=== PATIENT | female | born 1965 | race African-American/Black ===

== ENCOUNTER 2016-09-07 01:02 | Emergency (ER) | payer OTHER, MEDICAID ==
[~2016-09-07] VITALS: Ht 177.8 cm; Wt 117.9 kg
[~2016-09-07 01:02] MED LIST: ACETAMINOPHEN-1 EAC1 ORAL; ALBUTEROL SULF8.5 GM INH; BACTRIM DS TAB1 EAC1 ORAL; CARDIZEM CD180 MG ORAL; COLACE100 MG ORAL; DIGOXIN0.25 MG/5 ORAL; LEVAQUIN500 MG ORAL; METOPROLOL TART50 M1 ORAL; METRONIDAZOLE500 MG ORAL; MULTIVITAMINS1 EAC2 ORAL; NORCO 5-325 TA1 EACH ORAL; PREDNISONE20 M1 PO; PROTONIX20 MG ORAL; REGLAN10 MG ORAL; TRAMADOL HCL50 MG ORAL; ULTRAM50 MG ORAL
[2016-09-07 01:08] VITALS: BP 143/80
[2016-09-07] MEDS ORDERED: NKM (01:14)
[2016-09-07 01:51] LABS: KETONES,URINE NEGATIVE (NEGATIVE); LEUKOCYTE ESTERASE ,URINE 3+ (NEGATIVE); NITRITE,URINE NEGATIVE (NEGATIVE); PH,URINE 6 (4.5-8.0); PROTEIN,URINE 2+ (NEGATIVE); UROBILINOGEN,URINE NORMAL MG/DL (0.0-1.0)
[2016-09-07 02:28] LABS: APPEARANCE,URINE CLOUDY
[2016-09-07 02:30] LABS: BACTERIA,URINE MANY /HPF; SQUAMOUS EPITHELIAL CELL,UR MODERATE /LPF (NONE/OCC); TRICHOMONAS,URINE FEW /HPF; WBC,URINE TNTC /HPF (0 - 2)
[2016-09-07] MEDS ORDERED: Lidocaine 1% MPF 10mg/ml 5ml ONE (02:48)
[2016-09-07 03:08] VITALS: BP 146/82
[2016-09-07] MEDS ORDERED: metroNIDAZOLE 500mg tab ORAL ONE (04:00)
[2016-09-07] MEDS ORDERED: METRONIDAZOLE500 MG ORAL (04:05)
[2016-09-07] MEDS ORDERED: NITROFURANTOIN100 M2 ORAL (04:05)
[2016-09-07 04:21] VITALS: BP 146/82
--- NOTE | 2016-09-07 09:01 | Emergency Room Report ---
History of Present Illness General Chief Complaint: General Complaint Source: Patient Present Illness HPI Pt with d/c after anal intercourse with several days ago. D/C copious, foul smelling and watery. No pelvic pain. No dysuria. uncircumcised. No fever, abdominal pain, NVD. No bleeding. Allergies: Coded Allergies: No Known Allergies (Unverified , 07/31/14) Patient History Past Medical History: see triage record Social History: Denies: smoking Social History Narrative with and children Last Menstrual Period: Jul 30, 2017 : 9 Para: 5 Reviewed Nursing Documentation: PMH: Agreed, PSxH: Agreed Nursing Documentation-PMH Past Medical History: No Stated History Hx Cardiac Problems: No Hx Cancer: No Hx Gastrointestinal Problems: No Hx Neurological Problems: No Review of Systems Constitutional: Reports: see HPI Respiratory: Denies: shortness of breath Cardiovascular: Denies: chest pain Gastrointestinal: Reports: see HPI Genitourinary: Reports: see HPI Musculoskeletal: Denies: back pain Skin: Denies: rash Psychiatric: Denies: depressed feelings Physical Exam Vital Signs Date Time Temp Pulse Resp B/P Pulse Ox O2 Delivery O2 Flow Rate FiO2 09/07/16 01:04 98.4 99 18 143/80 99 Room Air Sp02 EP Interpretation: reviewed, normal General Appearance: well appearing, no apparent distress, GCS 15 Head: normocephalic Eyes: bilateral eye normal inspection ENT: moist mucus membranes Neck: supple Respiratory: lungs clear, normal breath sounds Cardiovascular #1: regular rate, rhythm Cardiovascular #2: 2+ radial (R) Gastrointestinal: normal inspection, normal bowel sounds, non tender, no mass, non-distended Genitourinary: cervix normal, ext genitalia/vag normal, os closed, uterus normal - no CMT, other - [place] d/c, greenish on swabs Musculoskeletal: back normal, gait/station normal, normal range of motion Neurologic: oriented x3, grossly normal Skin: normal inspection, warm/dry Medical Decision Making Diagnostic Impression: Primary Impression: UTI (urinary tract infection) Qualified Codes: N30.00 - Acute cystitis without hematuria Additional Impression: Vaginitis ER Course Patient with discharge. DDx: vaginitis, trichomonas, GC, chlamydia, UTI amongst others. Needs pelvic and UA. Wet mount with clue cells and trichomonas. Patient treated. Advised to have seek treatment also. Patient stable for outpatient observation and treatment. Laboratory Tests Test 09/07/16 01:31 Urine Color Pale yellow Urine Appearance Cloudy Urine pH 6 (4.5-8.0) Urine Specific [place] 1.020 (1.005-1.035) Urine Protein 2+ (NEGATIVE) H Urine Glucose (UA) Negative (NEGATIVE) Urine Ketones Negative (NEGATIVE) Urine Occult Blood 2+ (NEGATIVE) H Urine Nitrite Negative (NEGATIVE) Urine Bilirubin Negative (NEGATIVE) Urine Urobilinogen Normal MG/DL (0.0-1.0) Urine Leukocyte Esterase 3+ (NEGATIVE) H Urine RBC 5-10 /HPF (0 - 2) H Urine WBC Tntc /HPF (0 - 2) H Urine Squamous Epithelial Cells Moderate /LPF (NONE/OCC) H Urine Bacteria Many /HPF (NONE) H Urine Trichomonas Few /HPF (NONE) H Microbiology Date/Time Source Procedure Growth Status 09/07/16 02:15 Vaginal Wet Prep - Final Complete Last Vital Signs Date Time Temp Pulse Resp B/P Pulse Ox O2 Delivery O2 Flow Rate FiO2 09/07/16 04:21 98.2 94 18 146/82 99 Room Air Status: improved Disposition: HOME, SELF-CARE Condition: Improved Scripts Nitrofurantoin Monohyd/M-Cryst* (MACROBID 100 MG*) 100 Mg Capsule 100 MG ORAL EVERY 12 HOURS, #14 CAP Prov: Jian Hernandez M.D. 09/07/16 Metronidazole* (FLAGYL*) 500 Mg Tablet 500 MG ORAL EVERY 8 HOURS, #21 TAB Prov: Jian Hernandez M.D. 09/07/16 Referrals: Rene HARRIS,REFERRING (PCP) Patient Instructions: Urinary Tract Infection, Vaginitis Additional Instructions: Follow up with your applications system analyst. Have your man get treatment. Jian Hernandez M.D. Sep 07, 2016 09:01
== END 2016-09-07 04:21 | disposition home or self-care (01) ==
LOC: EMR 01:25
DX: N39.0 Urinary tract infection, site not specified (principal); N76.0 Acute vaginitis
CPT/HCPCS: 81003; 87081; 87086; 87181; 87205; 87210; 96372; 99284; J0696

== ENCOUNTER 2016-10-26 23:07 | Emergency (ER) | payer OTHER, MEDICAID ==
[~2016-10-26] VITALS: Ht 177.8 cm; Wt 114.3 kg
[~2016-10-26 23:07] MED LIST changes: +NITROFURANTOIN100 M2 ORAL; +NKM
[2016-10-26 23:30] VITALS: BP 144/86
[2016-10-26] MEDS ORDERED: AMOXICILLIN500 MG ORAL (23:37)
[2016-10-26 23:44] VITALS: BP 144/86
--- NOTE | 2016-10-27 03:42 | Emergency Room Report ---
History of Present Illness General Chief Complaint: Earache Source: Patient Present Illness HPI 50-year-old female presents to ED complaining of sore throat x1 day. States pain is burning, 7/10, nonradiating. Denies fevers or chills. Notes bilateral ear pain. Denies cough. Denies sick contacts or recent travel. No other aggravating or relieving factor. Denies and associated symptom Allergies: Coded Allergies: No Known Allergies (Unverified , 07/31/14) Patient History Past Medical History: none Past Surgical History: none Pertinent Family History: none Social History: Denies: alcohol use, drug use, smoking Now: No Immunizations: UTD Reviewed Nursing Documentation: PMH: Agreed, PSxH: Agreed Nursing Documentation-PMH Past Medical History: No Stated History Hx Cardiac Problems: No Hx Cancer: No Hx Gastrointestinal Problems: No Hx Neurological Problems: No Review of Systems All Other Systems: negative except mentioned in HPI Physical Exam Vital Signs Date Time Temp Pulse Resp B/P Pulse Ox O2 Delivery O2 Flow Rate FiO2 10/26/16 23:23 98.6 93 16 144/86 95 Room Air Sp02 EP Interpretation: reviewed, normal General Appearance: no apparent distress, alert, GCS 15, non-toxic Head: normocephalic, atraumatic Eyes: bilateral eye PERRL, bilateral eye normal inspection ENT: hearing grossly normal, normal voice, TMs + canals normal, pharyngeal erythema, tonsillar exudate Neck: full range of motion, supple/symm/no masses Respiratory: chest non-tender, lungs clear, normal breath sounds, speaking full sentences Cardiovascular #1: regular rate, rhythm, no edema Cardiovascular #2: 2+ carotid (R), 2+ carotid (L), 2+ radial (R), 2+ radial (L) , 2+ dorsalis pedis (R), 2+ dorsalis pedis (L) Gastrointestinal: normal bowel sounds, non tender, soft, non-distended, no guarding, no rebound Rectal: deferred Genitourinary: normal inspection, no CVA tenderness Musculoskeletal: back normal, gait/station normal, normal range of motion, non- tender Neurologic: alert, oriented x3, responsive, motor strength/tone normal, sensory intact, speech normal Psychiatric: judgement/insight normal, memory normal, mood/affect normal, no suicidal/homicidal ideation Reflexes: 3+ bicep (R), 3+ bicep (L), 3+ tricep (R), 3+ tricep (L), 3+ knee (R) , 3+ knee (L) Skin: normal color, no rash, warm/dry, well hydrated Lymphatic: no adenopathy Medical Decision Making Diagnostic Impression: Primary Impression: Pharyngitis Qualified Codes: J02.9 - Acute pharyngitis, unspecified ER Course Hospital Course 50-year-old female presents to ED complaining of sore throat Differential diagnoses include: URI, pharyngitis, otitis media Clinical course Patient placed on stretcher. After initial history, physical exam reveals a female in no acute distress. Bilateral TM unremarkable. There is pharyngeal erythema w/ tonsillar exudates. No lymphadenopathy. Clinical findings consistent with pharyngitis. Reassurance given Diagnosis - pharyngitis Stable and discharged home with prescriptions for amoxicillin. Instructed to followup with PMD. return to ED if symptoms recur or worsen Last Vital Signs Date Time Temp Pulse Resp B/P Pulse Ox O2 Delivery O2 Flow Rate FiO2 10/26/16 23:44 98.6 16 144/86 95 Room Air 10/26/16 23:23 93 Status: improved Disposition: HOME, SELF-CARE Condition: Stable Scripts Amoxicillin* (AMOXIL*) 500 Mg Capsule 500 MG ORAL THREE TIMES A DAY, #21 CAP Prov: AMILCAR MILLER M.D. 10/26/16 Referrals: Rene HARRIS,REFERRING (PCP) Patient Instructions: Pharyngitis, [id number] AMILCAR MILLER M.D. Oct 27, 2016 03:42
== END 2016-10-26 23:44 | disposition home or self-care (01) ==
LOC: EMR 23:38
DX: J02.9 Acute pharyngitis, unspecified (principal); H92.03 Otalgia, bilateral
CPT/HCPCS: 99283

== ENCOUNTER 2019-11-25 20:25 | Emergency (ER) | payer MEDICAID ==
[~2019-11-25] VITALS: Ht 177.8 cm; Wt 117.9 kg
[~2019-11-25 20:25] MED LIST changes: +AMOXICILLIN500 MG ORAL; +DOXYCYCLINE HY100 M7 PO; +GLUCOPHAGE500 MG ORAL; +NORVASC10 MG ORAL; +PERCOCET 5-3251 EACH ORAL
[2019-11-25 20:30] VITALS: BP 139/83
--- NOTE | 2019-11-25 20:30 | NUR ---
ED Nurse Note: pt walked from home c/o L chest pain 10/10 pressure that radiates to L shoulder. pt denies nvd. vss, nad. ermd at bedside
--- NOTE | 2019-11-25 20:45 | NUR ---
ED Nurse Note: blood drawn and sent to lab
[2019-11-25] MEDS ORDERED: Acetaminophen 500mg (ES) tab ORAL ONE (21:00)
[2019-11-25] MEDS ORDERED: Methocarbamol 750mg tab ORAL ONE (21:00)
--- NOTE | 2019-11-25 21:00 | NUR ---
ED Nurse Note: xr at bedside
[2019-11-25 21:07] LABS: BASOPHILS % (AUTO) 1.6 % (0.0-2.0); HEMATOCRIT 41.3 % (37.0-47.0); HEMOGLOBIN 12.4 G/DL (12.0-16.0); LYMPHOCYTES % (AUTO) 31.7 % (20.0-45.0); MEAN CORPUSCULAR VOLUME 88 FL (80-99); MONOCYTES % (AUTO) 4.3 % (1.0-10.0); NEUTROPHILS % (AUTO) 61.5 % (45.0-75.0); PLATELET COUNT 530 K/UL (150-450); RED CELL DISTRIBUTION WIDTH 15.8 % (11.6-14.8); WHITE BLOOD COUNT 13.2 K/UL (4.8-10.8)
[2019-11-25 21:14] LABS: ANION GAP 13 mmol/L (5-15); BLOOD UREA NITROGEN 11 mg/dL (7-18); CALCIUM 9.4 MG/DL (8.5-10.1); CARBON DIOXIDE 26 MMOL/L (21-32); CHLORIDE 106 MMOL/L (98-107); CREATININE 0.9 MG/DL (0.55-1.30); POTASSIUM 3.6 MMOL/L (3.5-5.1); SODIUM 145 MMOL/L (136-145)
--- NOTE | 2019-11-25 21:16 | Diagnostic Imaging Report ---
EXAM: XR Chest, 1 View CLINICAL HISTORY: CP TECHNIQUE: Frontal view of the chest. COMPARISON: 07/26/19 FINDINGS: Lungs: Low lung volumes with bronchovascular crowding. No consolidation, pleural effusion, or pneumothorax. Pleural space: See above. Heart: Unremarkable. No cardiomegaly. Mediastinum: Unremarkable. Bones/joints: Unremarkable. IMPRESSION: 1. Low lung volumes with bronchovascular crowding. 2. Otherwise no acute cardiopulmonary disease. 3. If there is continued concern, recommend frontal and lateral chest radiographs or CT.
[2019-11-25 21:19] LABS: ALANINE AMINOTRANSFERASE 50 U/L (12-78); ALBUMIN 3.4 G/DL (3.4-5.0); ALBUMIN/GLOBULIN RATIO 0.7 (1.0-2.7); ALKALINE PHOSPHATASE 104 U/L (46-116); ASPARTATE AMINO TRANSFERASE 27 U/L (15-37); BILIRUBIN,TOTAL 0.2 MG/DL (0.2-1.0)
[2019-11-25] MEDS ORDERED: LIDODERM700 M1 TOPIC (21:46)
[2019-11-25] MEDS ORDERED: ROBAXIN-750750 MG PO (21:46)
[2019-11-25] MEDS ORDERED: TYLENOL EXTRA500 MG ORAL (21:46)
[2019-11-25 22:03] VITALS: BP 143/74
[2019-11-25 22:04] VITALS: BP 143/74
--- NOTE | 2019-11-25 22:04 | NUR ---
ER DISCHARGE NOTE: Patient is cleared to be discharged per ERMD, pt is aox4, on room air, with stable vital signs. pt was given dc and prescription instructions, pt was able to verbalize understanding, pt id band and iv site removed without complications. pt is able to ambulate with steady gait. pt took all belongings.
--- NOTE | 2019-11-25 22:28 | Emergency Room Report ---
History of Present Illness General Chief Complaint: Chest Pain Source: Patient Present Illness HPI 53-year-old female presents ED complaining of chest pain. Pain is left-sided, dull, 7 out of 10, radiating to the shoulder. Comes and goes for the last 2 weeks. Denies shortness of breath. Denies fevers or chills. Denies cough. No other aggravating relieving factors. Denies any other associated symptoms Allergies: Coded Allergies: No Known Allergies (Unverified , 07/31/14) COVID-19 Screening Contact w/high risk pt: No Recent Travel to affected area: No Experienced COVID-19 symptoms?: No Patient History Past Medical History: none Past Surgical History: none Pertinent Family History: none Social History: Denies: smoking, alcohol use, drug use Now: No Immunizations: UTD Reviewed Nursing Documentation: PMH: Agreed; PSxH: Agreed Nursing Documentation-PMH Hx Cardiac Problems: No Hx Cancer: No Hx Gastrointestinal Problems: No Hx Neurological Problems: No Review of Systems All Other Systems: negative except mentioned in HPI Physical Exam Vital Signs Date Time Temp Pulse Resp B/P (MAP) Pulse Ox O2 Delivery O2 Flow Rate FiO2 11/25/19 20:29 98.2 110 18 168/89 (115) 95 Room Air 11/25/19 20:30 99 Sp02 EP Interpretation: reviewed, normal General Appearance: no apparent distress, alert, GCS 15, non-toxic, obese Head: normocephalic, atraumatic Eyes: bilateral eye normal inspection, bilateral eye PERRL ENT: hearing grossly normal, normal pharynx, no angioedema, normal voice Neck: full range of motion, no bony tend, supple/symm/no masses, tender lateral Respiratory: lungs clear, normal breath sounds, speaking full sentences, other - reproducible anterior chest wall pain Cardiovascular #1: regular rate, rhythm, no edema Cardiovascular #2: 2+ carotid (R), 2+ carotid (L), 2+ radial (R), 2+ radial (L) , 2+ dorsalis pedis (R), 2+ dorsalis pedis (L) Gastrointestinal: normal bowel sounds, non tender, soft, non-distended, no guarding, no rebound Rectal: deferred Genitourinary: normal inspection, no CVA tenderness Musculoskeletal: back normal, normal range of motion, gait/station normal, non- tender Neurologic: alert, motor strength/tone normal, oriented x3, sensory intact, responsive, speech normal Psychiatric: judgement/insight normal, memory normal, mood/affect normal, no suicidal/homicidal ideation Reflexes: 3+ bicep (R), 3+ bicep (L), 3+ tricep (R), 3+ tricep (L), 3+ knee (R) , 3+ knee (L) Skin: no rash Lymphatic: no adenopathy Medical Decision Making Diagnostic Impression: Primary Impression: Chest wall pain ER Course Hospital Course 53-year-old female presents ED complaining of reproducible chest wall pain Differential diagnoses include: Rib fracture, CO/unstable angina, contusion, muscle strain Clinical course Patient placed on stretcher. After initial history and physical I ordered labs , EKG, chest x-ray. tylenol and robaxin labs reviewed- all electrolytes normal, troponins negative, no leukocytosis, hemoglobin/hematocrit stable EKG - NSR no acute ischemic changes interpreted by me Chest x-ray-no cardiomegaly, no rib fracture, no pneumothorax, no acute process clinical findings consistent with muscle strain/costochondritis. Reassurance given. Upon reassessment patient states pain is improved. Safe for discharge with close outpatient follow-up. I. I feel this is a highly complex case requiring extensive working including EKG/Rhythm strip, Xray/CT/US, Blood/urine lab work, repeat exams while in ED, and administration of strong opiates/narcotics for pain control, admission to hospital or close patient follow up. Diagnosis - chest wall pain Stable and discharged to home with prescription for all in all, Robaxin, Lidoderm. Instructed to followup with PMD. Return to ED if symptoms recur or worsen Labs Test 11/25/19 20:55 White Blood Count 13.2 K/UL (4.8-10.8) Red Blood Count 4.70 M/UL (4.20-5.40) Hemoglobin 12.4 G/DL (12.0-16.0) Hematocrit 41.3 % (37.0-47.0) Mean Corpuscular Volume 88 FL (80-99) Mean Corpuscular Hemoglobin 26.3 PG (27.0-31.0) Mean Corpuscular Hemoglobin Concent 30.0 G/DL (32.0-36.0) Red Cell Distribution Width 15.8 % (11.6-14.8) Platelet Count 530 K/UL (150-450) Mean Platelet Volume 7.0 FL (6.5-10.1) Neutrophils (%) (Auto) 61.5 % (45.0-75.0) Lymphocytes (%) (Auto) 31.7 % (20.0-45.0) Monocytes (%) (Auto) 4.3 % (1.0-10.0) Eosinophils (%) (Auto) 1.0 % (0.0-3.0) Basophils (%) (Auto) 1.6 % (0.0-2.0) Sodium Level 145 MMOL/L (136-145) Potassium Level 3.6 MMOL/L (3.5-5.1) Chloride Level 106 MMOL/L (98-107) Carbon Dioxide Level 26 MMOL/L (21-32) Anion Gap 13 mmol/L (5-15) Blood Urea Nitrogen 11 mg/dL (7-18) Creatinine 0.9 MG/DL (0.55-1.30) Estimat Glomerular Filtration Rate > 60 mL/min (>60) Glucose Level 167 MG/DL (74-106) Calcium Level 9.4 MG/DL (8.5-10.1) Total Bilirubin 0.2 MG/DL (0.2-1.0) Aspartate Amino Transf (AST/SGOT) 27 U/L (15-37) Alanine Aminotransferase (ALT/SGPT) 50 U/L (12-78) Alkaline Phosphatase 104 U/L (46-116) Troponin I 0.000 ng/mL (0.000-0.056) Total Protein 8.3 G/DL (6.4-8.2) Albumin 3.4 G/DL (3.4-5.0) Globulin 4.9 g/dL Albumin/Globulin Ratio 0.7 (1.0-2.7) EKG Diagnostic Results Rate: normal Rhythm: NSR ST Segments: no acute changes ASA given to the pt in ED: No Rhythm Strip Diag. Results EP Interpretation: yes Rhythm: NSR, no PVC's, no ectopy Chest X-Ray Diagnostic Results Chest X-Ray Diagnostic Results : Chest X-Ray Ordered: Yes # of Views/Limited/Complete: 1 View Indication: Chest Pain EP Interpretation: Yes Interpretation: no consolidation, no effusion, no pneumothorax, no acute cardiopulmonary disease Impression: No acute disease Electronically Signed by: Electronically signed by Mychal Felipe MD Last Vital Signs Date Time Temp Pulse Resp B/P (MAP) Pulse Ox O2 Delivery O2 Flow Rate FiO2 11/25/19 22:04 98.6 81 18 143/74 99 Room Air 99 Status: improved Disposition: HOME, SELF-CARE Condition: Stable Scripts Lidocaine Patch* (Lidoderm Patch*) 1 Each Adh..patch 1 PATCH TOPIC DAILY, #7 PATCH 0 Refills Patch(es) may remain in place for up to 12 hours in any 24-hour period. Prov: Mychal Felipe MD 11/25/19 Methocarbamol* (ROBAXIN-750*) 750 Mg Tablet 750 MG PO TID, #21 TAB 0 Refills Prov: Mychal Felipe MD 11/25/19 Acetaminophen* (TYLENOL EXTRA STRENGTH*) 500 Mg Tablet 500 MG ORAL Q8H PRN for Prn Headache/Temp > 101, #30 TAB 0 Refills Prov: Mychal Felipe MD 11/25/19 Referrals: NON PHYSICIAN (PCP) Patient Instructions: Chest Wall Pain, [id number] Mychal Felipe MD Nov 25, 2019 22:28
== END 2019-11-25 22:04 | disposition home or self-care (01) ==
LOC: EMR 21:00
DX: R07.9 Chest pain, unspecified (principal); E66.9 Obesity, unspecified
CPT/HCPCS: 36415; 71045; 80053; 84484; 85025; 93005; Z7502; 99284